=== PATIENT | male | born 1970 | race Caucasian/White ===

== ENCOUNTER 2017-11-04 09:46 | Inpatient (IN) | payer BC ==
[~2017-11-04] VITALS: Ht 160 cm; Wt 45.4 kg
--- NOTE | ~2017-11-04 | PROC ---
[facility] [address] [place] [address] PROCEDURE REPORT Name: ROSIE BANKS Room: [address] IN .R.#: [id number] Admission: 11/04/17 Attend Phys: Shasha Boss Discharge: Date of : 70 Report #: [id number] THIS REPORT FOR: //name// For GI report, please see the Provation report in Perceptive 7 content. By: [facility] Hospital[facility] Records Staff [facility] /[facility]E
[~2017-11-04 09:46] MED LIST: ALPRAZOLAM 0.50.5 M1 PO; AUGMENTIN 875875 MG PO; BENTYL 20 MG TA20 M1 PO; CARAFATE 1 GM TA1 G1 PO; CIPROFLOXACIN500 M1 PO; CIPROFLOXACIN500 M3; CIPROFLOXACIN500 M3 PO; COLACE 100 MG100 MG PO; E-MYCIN250 MG; ERYTHROMYCIN250 M1 PO; FLAGYL500 MG; FLAGYL500 MG PO; HYDROCODON-ACE1 EAC7; HYDROCODON-ACE1 EACH PO; HYDROCODONE-AP1 EAC6 PO; HYDROCODONE-APA1 TA1 PO; HYDROXYZINE HCL10 M1; INDERIDE PO; LYRICA 50 MG50 MG; LYRICA 50 MG50 MG PO; MUCINEX D TABL1 EACH PO; NICOTINE TRANSD14 M1; NORCO 5-325 TA1 EACH; NORCO 5-325 TA1 EACH PO; OMEPRAZOLE 20 M20 M1; PERCOCET 5-3251 EACH PO; PERCOCET 7.5-31 EACH PO; PERCOCET PO; PROPRANOLOL 1010 M1 PO; PROPRANOLOL 20M20 M1 PO; PROPRANOLOL 4040 M1 PO; REGLAN 5 MG TAB5 M1; TRAMADOL 50 MG50 MG PO; VICODIN 5-5001 EACH PO; VICODIN ES TAB1 EACH PO; XANAX 0.25 MG0.25 MG; XANAX 0.5 MG0.5 M1; XANAX 0.5 MG0.5 MG PO; ZOFRAN ODT4 MG PO; ZOFRAN4 MG PO
[2017-11-04 09:50] VITALS: BP 133/89
[2017-11-04 10:20] LABS: ABSOLUTE EOSINOPHILS 0.1 thou/uL (0.0-0.7); ABSOLUTE LYMPHOCYTES 1.3 thou/uL (0.8-5.3); ABSOLUTE MONOCYTES 0.5 thou/uL (0.0-1.2); ABSOLUTE NEUTROPHILS 3.2 thou/uL (1.6-8.1); BASOPHILS 0.9 %; EOSINOPHILS 2.3 %; HEMATOCRIT 43.1 % (42.0-52.0); HEMOGLOBIN 14.9 gm/dL (14.0-18.0); LYMPHOCYTES 25.6 %; MCH 32.3 pg (26.0-34.0); MCHC 34.6 g/dL (28.0-37.0); MCV 93.2 fL (80.0-100.0); MONOCYTES 8.9 %; MPV 8.6 fl. (7.2-11.1); NUCLEATED RBCS 0 /100WBC; PLATELET COUNT* 153 thou/uL (150-400); POLYS 62.3 %; RBC 4.63 mil/uL (4.50-6.00); RDW-CV 12.9 % (10.5-14.5); WBC 5.2 thou/uL (4.0-11.0)
[2017-11-04 10:27] LABS: CALCIUM 8.8 mg/dL (8.5-10.1); POTASSIUM 3.7 mmol/L (3.5-5.1)
[2017-11-04 10:32] LABS: ALBUMIN 4.1 g/dL (3.4-5.0); TOTAL BILIRUBIN 2.7 mg/dL (<0.1-1.0); TOTAL PROTEIN 6.9 g/dL (6.4-8.2)
[2017-11-04 10:53] LABS: URINE BILIRUBIN NEGATIVE (Negative); URINE BLOOD TRACE (Negative); URINE CLARITY CLEAR; URINE COLOR YELLOW; URINE GLUCOSE-RANDOM NEGATIVE (Negative); URINE KETONES NEGATIVE (Negative); URINE LEUKOCYTES-REFLEX NEGATIVE (Negative); URINE NITRITE-REFLEX NEGATIVE (Negative); URINE PROTEIN NEGATIVE (Negative); URINE SPECIFIC GRAVITY <= 1.005 (1.005-1.030); URINE UROBILINOGEN 0.2 E.U./dl (0.2-1.0)
[2017-11-04 13:38] VITALS: BP 143/86
[2017-11-04 13:55] VITALS: BP 145/86
[2017-11-04 16:00] VITALS: BP 158/86
[2017-11-04 20:00] VITALS: BP 145/87
[2017-11-05 04:24] LABS: ABSOLUTE BASOPHILS 0.1 thou/uL (0.0-0.2); ABSOLUTE EOSINOPHILS 0.2 thou/uL (0.0-0.7); ABSOLUTE LYMPHOCYTES 3.3 thou/uL (0.8-5.3); ABSOLUTE MONOCYTES 0.7 thou/uL (0.0-1.2); ABSOLUTE NEUTROPHILS 2.8 thou/uL (1.6-8.1); EOSINOPHILS 3.2 %; HEMATOCRIT 47.7 % (42.0-52.0); HEMOGLOBIN 16.3 gm/dL (14.0-18.0); LYMPHOCYTES 46.6 %; MCH 32.3 pg (26.0-34.0); MCHC 34.1 g/dL (28.0-37.0); MCV 94.7 fL (80.0-100.0); MONOCYTES 9.6 %; MPV 9.6 fl. (7.2-11.1); NUCLEATED RBCS 0 /100WBC; PLATELET COUNT* 169 thou/uL (150-400); POLYS 39.6 %; RBC 5.04 mil/uL (4.50-6.00); RDW-CV 12.8 % (10.5-14.5)
[2017-11-05 04:49] LABS: ALBUMIN 4.7 g/dL (3.4-5.0); CALCIUM 9.6 mg/dL (8.5-10.1); MAGNESIUM 2.4 mg/dL (1.8-2.4); PHOSPHORUS* 4.8 mg/dL (2.5-4.9); POTASSIUM 4.4 mmol/L (3.5-5.1); TOTAL PROTEIN 7.7 g/dL (6.4-8.2)
[2017-11-05 07:30] VITALS: BP 111/78
[2017-11-05 10:06] VITALS: BP 111/78
[2017-11-05 11:00] VITALS: BP 123/70
[2017-11-05 16:07] VITALS: BP 116/84
[2017-11-05 23:20] VITALS: BP 99/67
[2017-11-06 09:00] VITALS: BP 111/79
[2017-11-06 16:00] VITALS: BP 116/72
[2017-11-06 22:00] VITALS: BP 92/54
[2017-11-07 06:00] VITALS: BP 124/83
[2017-11-07 08:54] VITALS: BP 124/88
[2017-11-07 16:13] VITALS: BP 129/86
[2017-11-07 22:00] VITALS: BP 125/79
[2017-11-08 04:16] LABS: ABSOLUTE BASOPHILS 0.1 thou/uL (0.0-0.2); ABSOLUTE EOSINOPHILS 0.2 thou/uL (0.0-0.7); ABSOLUTE LYMPHOCYTES 2.4 thou/uL (0.8-5.3); ABSOLUTE MONOCYTES 0.5 thou/uL (0.0-1.2); ABSOLUTE NEUTROPHILS 2.3 thou/uL (1.6-8.1); BASOPHILS 1.1 %; EOSINOPHILS 3.2 %; HEMATOCRIT 37.2 % (42.0-52.0); LYMPHOCYTES 43.9 %; MCH 32.5 pg (26.0-34.0); MCHC 35.1 g/dL (28.0-37.0); MCV 92.6 fL (80.0-100.0); MONOCYTES 9.8 %; MPV 9.2 fl. (7.2-11.1); NUCLEATED RBCS 0 /100WBC; PLATELET COUNT* 113 thou/uL (150-400); RBC 4.02 mil/uL (4.50-6.00); RDW-CV 12.3 % (10.5-14.5); WBC 5.5 thou/uL (4.0-11.0)
[2017-11-08 04:44] LABS: HEMOGLOBIN 13.1 gm/dL (14.0-18.0)
[2017-11-08 04:57] LABS: CALCIUM 8.6 mg/dL (8.5-10.1); POTASSIUM 3.9 mmol/L (3.5-5.1)
[2017-11-08 08:49] VITALS: BP 117/84
[2017-11-08 16:00] VITALS: BP 125/86
[2017-11-08 22:00] VITALS: BP 125/90
[2017-11-09 08:00] VITALS: BP 116/81
[2017-11-09] MEDS ORDERED: ACIDOPHILUS1 EAC4 PO (10:56)
[2017-11-09] MEDS ORDERED: PROTONIX40 M1 PO (10:56)
[2017-11-09] MEDS ORDERED: CARAFATE 1 GM TA1 G1 PO (10:56)
[2017-11-09] MEDS ORDERED: HYDROCODONE-AP1 EAC6 PO (10:56)
[2017-11-09] MEDS ORDERED: COLESTID1 GM PO (10:56)
[2017-11-09 12:14] LABS: CALCIUM 8.5 mg/dL (8.5-10.1); POTASSIUM 3.6 mmol/L (3.5-5.1)
[2017-11-09 15:24] VITALS: BP 138/95
[2017-11-09 20:45] VITALS: BP 155/92
--- NOTE | 2017-11-09 22:13 | PATH ---
[address] [address] PATHOLOGY RPT PROCEDURE Name: ROSIE STERN Room: [address] IN M.R.#: [id number] Admission: 11/04/17 Date of : 70 Discharge: Report #: [id number] Path Case #: [id number] [facility] Accession Number: [id number] . 01 Material submitted: . PART A: GASTRIC BIOPSY PART B: RANDOM COLON BIOPSY . 01 Clinical history: . Abdominal pain, partial SBO . 02 Diagnosis: A. Gastric "gastric biopsy": - Mild chronic reactive gastropathy. - There is no evidence of atypia or malignancy. - Immunoperoxidase stain for Helicobacter pylori is negative. . B. Colonic mucosa "random colon biopsies": - No obvious diagnostic changes. - There is no evidence of acute cryptitis, granulomas, adenomatous change, changes of microscopic colitis, or malignancy. (SHA:regan;db: 11/09/2017) QMS/11/09/2017 . 02 Electronically signed: . Deshaun Burger MD, Pathologist NPI- [id number] . 01 Gross description: . A. Received in formalin labeled "Rosie Stern, gastric BX," is a single segment of steen soft tissue measuring 0.4 cm in maximum dimension. The specimen is entirely submitted in cassette A1. . B. Received in formalin labeled "Rosie Stern, random colon BX," are 4 segments of steen soft tissue measuring 0.9 x 0.8 x 0.2 cm in aggregate dimensions and ranging from 0.3 to 0.5 cm in maximum dimension. The specimen is submitted entirely in cassette B1. (TSD; 11/05/2017) TOB/TOB . 02 Pathologist provided ICD-10: K31.9, R10.9 . 02 CPT . 215782, 297562, B14967 Performed at: [address], [place] [id number] [place] [address] PATHOLOGY RPT PROCEDURE Name: ROSIE STERN Room: [address] IN .R.#: [id number] Admission: 11/04/17 Date of : 70 Discharge: Report #: [id number] Path Case #: [id number] MD Gregg Connor MD Phone: [phone] Performed at: [address] [address] [address], [place], [place] [id number] MD Freddie Garcia MD Phone: [phone]
[2017-11-10 00:22] VITALS: BP 126/74
[2017-11-10 06:02] LABS: CALCIUM 8.9 mg/dL (8.5-10.1); POTASSIUM 3.9 mmol/L (3.5-5.1)
[2017-11-10 08:00] VITALS: BP 133/87
[2017-11-10 16:00] VITALS: BP 131/93
--- NOTE | 2017-11-10 16:41 | CON ---
[address] [address] CONSULTATION Name: ROSIE BANKS Room: [address] IN .R.#: [id number] Admission: 11/04/17 Attend Phys: Shasha Boss Discharge: Date of : 70 Report #: [id number] THIS REPORT FOR: //name// CC: Gerald Pugh DATE OF SERVICE: 11/04/2017 REQUESTING PHYSICIAN: Hector Pugh DO. REASON FOR CONSULT: Nausea, vomiting, abdominal pain and evidence of partial small-bowel obstruction per imaging. HISTORY OF PRESENT ILLNESS: This is a 47-year-old male with history of diverticular perforation dating back to 2013. He has had history of colostomy due to the same and a takedown. Due to the leakage from takedown, he had a revision. The patient also reports that he had gallbladder surgery. He complains of intermittent nausea, vomiting and obstipation. He reports that occasionally, he may have diarrhea; on other times, he may have constipation. The patient admits that Dr. Woodson, my partner has had done a couple colonoscopies on him and his anastomotic site had to be dilated by a balloon in the past. His last colonoscopy was about 3 years ago. The patient denies any fever, chills, hematochezia, melena or hematemesis. PAST MEDICAL HISTORY: Significant for history of generalized anxiety disorder, GERD, gallbladder disease, status post cholecystectomy, history of pancreatitis, history of diverticulitis with perforation, colostomy with reversal. The patient also has history of hernia repair. ALLERGIES: SIGNIFICANT TO REGLAN, NSAIDS, FENTANYL, AND COMPAZINE. MEDICATIONS: Please refer to hospital MAR. SOCIAL HISTORY: The patient denies alcohol and drug use, but smokes. FAMILY HISTORY: Noncontributory. PHYSICAL EXAMINATION: VITAL SIGNS: Reveals blood pressure of 145/86, respiration 15, pulse 53, temperature 98.5. LUNGS: Clear. CARDIOVASCULAR: Regular. ABDOMEN: Soft, mildly tender to palpation in the [place] [address] CONSULTATION Name: ROSIE BANKS Room: [address] IN [facility]#: [id number] Admission: 11/04/17 Attend Phys: Shasha Boss Discharge: Date of : 70 Report #: [id number] is no abdominal distention or guarding. NEUROLOGIC: The patient is alert, oriented x 3. LABORATORY DATA: Revealed sodium of 134, potassium 3.7, BUN is 6, creatinine 1.0, glucose 138. Liver function tests are within normal limits. Total bilirubin is 2.7, alkaline phosphatase is 106. WBC is 5.2 with hemoglobin of 14.9 and platelet of 153. IMAGING: CT of abdomen and pelvis was obtained, which showed diffusely increased small bowel fluid. There are proximal small bowel loops, which are mildly dilated. There is no evidence of acute pancreatitis. ASSESSMENT AND PLAN: The patient with history of nausea, vomiting, and early satiety, who also has history of gastroparesis per report in 2011. We will go ahead and perform an upper endoscopy tomorrow to rule out gastroduodenal ulcers versus esophagitis versus gastric outlet obstruction. The patient also has history of colonic anastomotic stricture. Given his symptoms, we will evaluate this and possibly dilate the stricture if it is persisting. We will make further recommendation once the patient's endoscopic evaluation is complete. <ELECTRONICALLY SIGNED> By: Sinan Alberto MD 11/10/17 1641 [id number] Alberto MD /nt
[2017-11-10 20:00] VITALS: BP 145/94
[2017-11-11 01:10] VITALS: BP 95/55
[2017-11-11 04:55] VITALS: BP 136/92
[2017-11-11 09:16] VITALS: BP 124/86
[2017-11-11] MEDS ORDERED: PANCRELIPASE PO (10:01)
[2017-11-11 15:10] VITALS: BP 137/92
[2017-11-11 20:30] VITALS: BP 140/85
[2017-11-12 02:53] VITALS: BP 149/87
[2017-11-12 08:15] VITALS: BP 121/73
[2017-11-12] MEDS ORDERED: XARELTO15 MG PO (10:52)
[2017-11-12] MEDS ORDERED: XARELTO20 MG PO (10:52)
[2017-11-12 11:05] VITALS: BP 121/73
[2017-11-12 13:19] VITALS: BP 121/73
[2017-11-12 14:30] VITALS: BP 121/73
== END 2017-11-12 14:15 | disposition home or self-care (01) | DRG 388 ==
LOC: M.ERS 09:46 → M.TBA-ER 12:48 → M.ORTHSURG 13:49
PROVIDERS: Nurse Practitioner Family; Surgery; ADMIT Internal Medicine
PROC: 0DB98ZX Excision of Duodenum, Via Natural or Artificial Opening Endoscopic, Diagnostic (ICD-10-PCS; principal; 2017-11-05)
PROC: 0DBE8ZX Excision of Large Intestine, Via Natural or Artificial Opening Endoscopic, Diagnostic (ICD-10-PCS; principal; 2017-11-05)
DX: K56.600 Partial intestinal obstruction, unspecified as to cause (principal); K25.4 Chronic or unspecified gastric ulcer with hemorrhage; E44.0 Moderate protein-calorie malnutrition; Z68.1 Body mass index [BMI] 19.9 or less, adult; K31.9 Disease of stomach and duodenum, unspecified; K58.0 Irritable bowel syndrome with diarrhea; K44.9 Diaphragmatic hernia without obstruction or gangrene; K64.8 Other hemorrhoids; F32.9 Major depressive disorder, single episode, unspecified; E80.6 Other disorders of bilirubin metabolism; K21.9 Gastro-esophageal reflux disease without esophagitis; F41.9 Anxiety disorder, unspecified; G43.909 Migraine, unspecified, not intractable, without status migrainosus; Z93.3 Colostomy status; Z90.49 Acquired absence of other specified parts of digestive tract; Z88.6 Allergy status to analgesic agent; Z79.2 Long term (current) use of antibiotics; Z79.899 Other long term (current) drug therapy; Z88.8 Allergy status to other drugs, medicaments and biological substances; Z87.891 Personal history of nicotine dependence; Z80.0 Family history of malignant neoplasm of digestive organs

== ENCOUNTER 2018-11-03 16:37 | Emergency (ER) | payer BC ==
[~2018-11-03] VITALS: Ht 162.6 cm; Wt 49.9 kg
[~2018-11-03 16:37] MED LIST changes: +ACIDOPHILUS1 EAC4 PO; +COLESTID1 GM PO; +PANCRELIPASE PO; +PROTONIX40 M1 PO; +XARELTO15 MG PO; +XARELTO20 MG PO
[2018-11-03] MEDS ORDERED: PLAQUENIL200 MG PO (17:03)
[2018-11-03] MEDS ORDERED: PREDNISONE 10 M10 MG PO (17:04)
[2018-11-03] MEDS ORDERED: ONDANSETRON HCL4 M2 PO (17:04)
[2018-11-03 17:08] LABS: ABSOLUTE LYMPHOCYTES 1.3 thou/uL (0.8-5.3); ABSOLUTE MONOCYTES 0.6 thou/uL (0.0-1.2); ABSOLUTE NEUTROPHILS 6.5 thou/uL (1.6-8.1); BASOPHILS 0.6 %; EOSINOPHILS 0.1 %; HEMATOCRIT 44.3 % (42.0-52.0); HEMOGLOBIN 15.5 gm/dL (14.0-18.0); LYMPHOCYTES 15.7 %; MCH 32.2 pg (26.0-34.0); MCHC 35.1 g/dL (28.0-37.0); MCV 91.9 fL (80.0-100.0); NUCLEATED RBCS 0 /100WBC; PLATELET COUNT* 161 thou/uL (150-400); POLYS 76.6 %; RBC 4.82 mil/uL (4.50-6.00); RDW-CV 12.7 % (10.5-14.5); WBC 8.5 thou/uL (4.0-11.0)
[2018-11-03 17:15] LABS: CALCIUM 9.2 mg/dL (8.5-10.1); POTASSIUM 4.1 mmol/L (3.5-5.1)
[2018-11-03 17:19] LABS: ALBUMIN 4.8 g/dL (3.4-5.0); TOTAL PROTEIN 7.7 g/dL (6.4-8.2)
[2018-11-03] MEDS ORDERED: ZOFRAN ODT4 MG DISSOLVE (18:45)
[2018-11-03] MEDS ORDERED: COLACE100 MG PO (18:45)
[2018-11-03 18:55] VITALS: BP 112/82
== END 2018-11-03 18:57 | disposition home or self-care (01) ==
LOC: M.ERS 16:37
PROVIDERS: Emergency Medicine Emergency Medical Services
DX: R10.32 Left lower quadrant pain (principal); F41.9 Anxiety disorder, unspecified; G43.909 Migraine, unspecified, not intractable, without status migrainosus; K21.9 Gastro-esophageal reflux disease without esophagitis; F17.210 Nicotine dependence, cigarettes, uncomplicated; Z90.49 Acquired absence of other specified parts of digestive tract; Z88.8 Allergy status to other drugs, medicaments and biological substances; Z88.6 Allergy status to analgesic agent

== ENCOUNTER → 2019-12-07 | Outpatient (CLI) | payer BC ==
[~2019-12-07] MED LIST changes: +COLACE100 MG PO; +ONDANSETRON HCL4 M2 PO; +PLAQUENIL200 MG PO; +PREDNISONE 10 M10 MG PO; +ZOFRAN ODT4 MG DISSOLVE
== END ==
LOC: M.MRI 08:30
PROVIDERS: ATTEND Internal Medicine
DX: M25.78 Osteophyte, vertebrae (principal); L98.9 Disorder of the skin and subcutaneous tissue, unspecified